=== PATIENT | male | born 1965 | race African-American/Black ===

== ENCOUNTER 2018-07-31 05:23 | Emergency (ER) | payer MEDICAID ==
[~2018-07-31] VITALS: Ht 175.3 cm; Wt 90.0 kg
[2018-07-31] MEDS ORDERED: ALBUTEROL (0.083%) 2.5MG/3ML NEB HHN STA (06:27)
[2018-07-31] MEDS ORDERED: SODIUM CHLORIDE 0.9% 1,000 ML IV ONE (06:27)
[2018-07-31] MEDS ORDERED: IPRATROPIUM BROMIDE (0.02%) 0.5MG/2.5ML NEB HHN STA (06:27)
[2018-07-31] MEDS ORDERED: METHYLPREDNISOLONE SOD SUCC 125 MG/2 ML VIAL IV STA (06:27)
[2018-07-31] MEDS ORDERED: MAGNESIUM 2 G PREMIX 50 ML IV ONE (06:30)
[2018-07-31 06:57] LABS: EOSINOPHILS % 5.9 % (0.0-5.0); HEMATOCRIT. 40.8 % (42.0-52.0); HEMOGLOBIN. 13.7 g/dL (14.0-18.0); MEAN CORPUSCULAR HEMOGLOBIN 28.9 pg (28.0-32.0); MEAN CORPUSCULAR VOLUME 85.9 fL (80.0-94.0); MEAN PLATELET VOLUME 7.3 fl (7.4-10.4); MONOCYTES % 6.5 % (2.0-8.0); NEUTROPHILS % 74.6 % (40.0-76.0); PLATELET 259 x1000/uL (130-400); RED BLOOD CELL COUNT 4.76 mill/uL (4.7-6.1); RED CELL DISTRIBUTION WIDTH 13.9 % (11.6-14.6)
[2018-07-31 07:04] LABS: CHLORIDE 108 mEq/L (98-107)
[2018-07-31 10:10] VITALS: BP 143/98
== END 2018-07-31 10:17 | disposition home or self-care (01) ==
LOC: ER 05:23
DX: J45.901 Unspecified asthma with (acute) exacerbation (principal); I10 Essential (primary) hypertension
CPT/HCPCS: 36415; 71045; 80053; 84484; 85025; 93005; 94644; 96365; 96366; 96375; 99285; J2930; J3475; J7030; J7611; Z7610

== ENCOUNTER 2020-09-16 12:16 | Emergency (ER) | payer MEDICAID ==
[~2020-09-16] VITALS: Ht 175.3 cm; Wt 91.0 kg
[2020-09-16 15:15] LABS: BASOPHILS % 0.8 % (0.0-2.0); EOSINOPHILS % 5.3 % (0.0-5.0); HEMATOCRIT. 42.6 % (42.0-52.0); LYMPHOCYTES % 14.8 % (20.0-50.0); MEAN CORPUSCULAR HEMOGLOBIN 29.5 pg (28.0-32.0); MEAN CORPUSCULAR VOLUME 83.7 fL (80.0-94.0); MEAN PLATELET VOLUME 7.3 fl (7.4-10.4); MONOCYTES % 6.2 % (2.0-8.0); NEUTROPHILS % 72.9 % (40.0-76.0); PLATELET 270 x1000/uL (130-400); RED BLOOD CELL COUNT 5.09 mill/uL (4.7-6.1); RED CELL DISTRIBUTION WIDTH 13.7 % (11.6-14.6)
[2020-09-16] MEDS ORDERED: METHYLPREDNISOLONE SOD SUCC 125 MG/2 ML VIAL IV STA (15:19)
[2020-09-16] MEDS ORDERED: ALBUTEROL (0.083%) 2.5MG/3ML NEB HHN STA (15:19)
[2020-09-16] MEDS ORDERED: IPRATROPIUM BROMIDE (0.02%) 0.5MG/2.5ML NEB HHN STA (15:19)
[2020-09-16 15:28] LABS: CHLORIDE 107 mEq/L (98-107)
[2020-09-16 19:57] VITALS: BP 152/95
[2020-09-16] MEDS ORDERED: P20 PO (20:01)
[2020-09-16] MEDS ORDERED: ALBU18HF2 IH (20:02)
[2020-09-25] MEDS ORDERED: ALBU05 NEB (09:17)
[2020-09-25] MEDS ORDERED: ALBU6.7H9 INH (09:17)
[2020-09-25] MEDS ORDERED: P50 PO (09:17)
== END 2020-09-16 20:13 | disposition home or self-care (01) ==
LOC: ER 12:16
DX: J45.901 Unspecified asthma with (acute) exacerbation (principal); R00.0 Tachycardia, unspecified; Z20.822 Contact with and (suspected) exposure to COVID-19; I10 Essential (primary) hypertension
CPT/HCPCS: 36415; 71045; 80053; 83880; 84484; 85025; 93005; 94644; 96374; 99285; C9803; J2930; U0003; U0005; Z7610; 94640